=== PATIENT | female | born 1970 ===

== ENCOUNTER 2024-11-18 14:26 | Outpatient (CLI) | payer OTHER | END 2024-11-18 14:27 | disposition home or self-care (01) | LOC: SONOGRAMA 14:26 | PROVIDERS: ATTEND Pathology Anatomic Pathology | DX: D34 Benign neoplasm of thyroid gland (principal); E07.89 Other specified disorders of thyroid; E04.1 Nontoxic single thyroid nodule; E03.8 Other specified hypothyroidism ==